=== PATIENT | female | born 1990 | race Two or more races ===

== ENCOUNTER 2022-06-16 16:22 | Emergency (ER) | payer BC | END 2022-06-16 17:03 | disposition home or self-care (01) | LOC: BURERS 16:22 | DX: S56.912A Strain of unspecified muscles, fascia and tendons at forearm level, left arm, initial encounter (principal); F17.210 Nicotine dependence, cigarettes, uncomplicated; X50.0XXA Overexertion from strenuous movement or load, initial encounter ==